=== PATIENT | male | born 1990 | race African-American/Black ===

== ENCOUNTER → 2019-09-12 | Emergency (ER) | payer MEDICAID, OTHER ==
[~2019-09-12] VITALS: Ht 180.3 cm; Wt 89.4 kg
[~2019-09-12] MED LIST: MORPHINE SULFATE 4 MG/ML SYR/VIAL IV ONE; ONDANSETRON HCL 4 MG/2 ML VIAL IV ONE; SODIUM CHLORIDE 0.9% 1,000 ML IV ONE
[2019-09-12 20:13] LABS: Urine WBC None Seen /hpf (0 - 3)
[2019-09-12 20:17] LABS: Basophils # (auto) 0 10 ^3/uL (0-0.2); Basophils % (auto) 0.4 % (0.0-2.0); Eosinophils # (auto) 0.1 10 ^3/uL (0-0.8); Eosinophils % (auto) 1.2 % (0.0-7.0); Hematocrit 42.9 % (41.0-53.0); Hemoglobin 14.2 g/dL (13.5-17.5); Lymphocytes # (auto) 1.4 10 ^3/uL (0.4-5.4); Lymphocytes % (auto) 18.4 % (10.0-50.0); Mean Corpuscular Hemoglobin 27.6 pg (28.0-32.0); Mean Corpuscular Hgb Conc. 33.2 g/dL (32.0-36.0); Mean Corpuscular Volume 83.1 fL (80.0-100.0); Monocytes # (auto) 0.6 10 ^3/uL (0-1.3); Monocytes % (auto) 7.9 % (0.0-12.0); Neutrophils # (auto) 5.5 10 ^3/uL (1.6-8.6); Neutrophils % (auto) 72.1 % (37.0-80.0); Nucleated Red Blood Cells % 0.1 %; Platelet Count (auto) 235 10^3/uL (140-450); Red Blood Cells 5.15 10^6/uL (4.5-5.90); Red Cell Distribution Width 13.3 % (11.8-14.3); White Blood Cell 7.6 10^3/uL (4.4-10.8)
[2019-09-12 20:21] LABS: Urine Amorphous Crystal FEW /hpf (None Seen); Urine Bacteria NONE SEEN /hpf (None Seen); Urine Blood Negative /uL (Negative); Urine Specific Gravity 1.026 (1.001-1.035)
[2019-09-12 20:30] LABS: INR 0.97 (0.9-1.15); Partial Thromboplastin Time 25.5 sec (23.64-32.05)
[2019-09-12 20:31] LABS: Albumin 4.6 g/dL (3.4-5.0); Calcium 9.3 mg/dL (8.5-10.1); Potassium 3.6 mmol/L (3.5-5.1)
[2019-09-12 20:35] LABS: BUN/Creatinine Ratio 11.5; Bilirubin, Total 0.5 mg/dL (0.2-1.0); Total Protein 8.2 g/dL (6.4-8.2)
[2019-09-12 20:37] LABS: Amylase 48 U/L (25-115); Lipase 94 U/L (73-393); Magnesium 2.3 mg/dL (1.6-2.6)
[2019-09-12 21:09] VITALS: BP 139/91
== END | disposition home or self-care (01) ==
LOC: ER 19:20
DX: N20.0 Calculus of kidney (principal)
CPT/HCPCS: 36415; 74176; 80053; 81001; 82150; 83690; 83735; 84484; 85025; 85610; 85730; 93005; 96374; 96375; 99285; J2270; J2405; J7030